=== PATIENT | male | born 1955 | race Caucasian/White ===

== ENCOUNTER 2020-03-03 15:31 | Inpatient (IN) | payer SELFPAY ==
[2020-03-03 16:09] VITALS: BMI 30.4
[2020-03-03 16:11] VITALS: BP 137/81; PULSE 67; RESP 18; TEMP 37.1; O2SAT 95
[2020-03-03 16:57] VITALS: BMI 30.4
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
[2020-03-03 18:55] VITALS: PULSE 67; RESP 18; O2SAT 95
[2020-03-03] MEDS: Ipratropium/Albuterol Sulfate 3 ML AMPUL.NEB INHALATION (18:55)
[2020-03-03] MEDS: oxyCODONE 5 MG Tablet PO (19:04)
[2020-03-03 19:22] VITALS: BP 128/78; PULSE 66; RESP 18; TEMP 36.7; O2SAT 94
[2020-03-03] MEDS: Erythromycin Base 1 OPTH.TUBE 1 APPLIC RIGHT EYE ×2 (21:10→23:14)
[2020-03-03] MEDS: levETIRAcetam 500 MG Tablet PO (21:12)
[2020-03-03] MEDS: Enoxaparin 30 MG/0.3 ML Syringe SC (21:12)
[2020-03-03] MEDS: Acetaminophen 500 MG Tablet 1000 MG PO (21:12)
[2020-03-03] MEDS: Senna/Docusate Sodium 1 Tablet 2 TABLET PO (21:12)
[2020-03-04] MEDS: oxyCODONE 5 MG Tablet PO ×4 (02:05→21:22)
--- NOTE | 2020-03-04 02:53 | NURSING ---
0200 while making pt rounds staff found pt up sitting in the wheelchair with one sock off. when asked what he was doing pt reported that he had just used the urinal and had made a mess on the floor. staff cleaned floor and pt was a max of 2 assists to return to bed, no alarm had gone off when pt got oob. pt did report pain in his left hip and pt was medicated for this. there was no unusual observations noted to the lt hip or on the pt . 1st bladder scan was completed at this time
[2020-03-04] MEDS: Acetaminophen 500 MG Tablet 1000 MG PO ×3 (05:32→21:25)
[2020-03-04] MEDS: Erythromycin Base 1 OPTH.TUBE 1 APPLIC RIGHT EYE ×4 (05:32→23:48)
[2020-03-04 05:44] LABS: Absolute Lymphocyte Count 1.53 X10^3/uL (0.83-4.51); Absolute Neutrophil Count 8.5 X10^3/uL (2.0-7.7); Basophil# 0.02 X10^3/uL; Basophil% 0.2 % (0-1); Eosinophil# 0.13 X10^3/uL; Eosinophils% 1.1 % (0-5); Hemoglobin 12.7 g/dL (13.0-16.5); Lymphocyte # 1.53 X10^3/ul (4.0); Lymphocyte % 13.2 % (19-41); Mean Corp Hgb Conc 33.4 g/dL (32-36); Mean Corpuscular Hgb 31.4 pg (27.0-32.0); Mean Corpuscular Volume 93.8 fL (80-94); Mean Platelet Vol. 9.5 fl (6.2-12.0); Monocyte# 1.28 X10^3/uL; Monocyte% 11.1 % (0-10); NRBC Flagged by Analyzer 0 % (0-5); Neutrophil % 73.5 % (47-70); Platelet Count 281 K/mm3 (150-450); RBC Distribution Width CV 12.8 % (11.6-14.6); RBC Distribution Width SD 43.9 fl (35.1-43.9); Red Blood Count 4.05 M/mm3 (4.6-6.2); White Blood Count 11.6 K/mm3 (4.4-11.0)
[2020-03-04 06:43] LABS: ALB/GLOB Ratio 0.6 RATIO (0.9-2.4); AST(SGOT) 36 U/L (15-37); Alanine Aminotransfer ALT/SGPT 73 U/L (16-61); Alkaline Phosphatase 99 U/L (45-117); Anion Gap 6 (5-15); BUN 20 mg/dL (7-18); BUN/Creat Ratio 28.4 RATIO (10-20); Calcium,Total 9.3 mg/dL (8.5-10.1); Chloride 100 mmol/L (98-107); EST Glomerular Filtration Rate 119 mL/min (>60); Est Glom Filt Rate - Afr Amer 144 mL/min (>60); Estimated Creatinine Clearance 101.79 ml/min; Globulin 5.2 g/dL (2.2-4.2); Glucose 121 mg/dL (74-106); Magnesium 2.3 mg/dL (1.6-2.6); Potassium 3.9 mmol/L (3.5-5.1); Protein, Total 8.2 g/dL (6.4-8.2); Sodium Level 132 mmol/L (136-145)
[2020-03-04 07:32] VITALS: PULSE 67; RESP 18; O2SAT 95
[2020-03-04] MEDS: Ipratropium/Albuterol Sulfate 3 ML AMPUL.NEB INHALATION ×3 (07:32→20:35)
[2020-03-04] MEDS: levETIRAcetam 500 MG Tablet PO ×2 (08:49→21:22)
[2020-03-04] MEDS: Aspirin 81 MG TAB.CHEW PO (08:49)
[2020-03-04] MEDS: Senna/Docusate Sodium 1 Tablet 2 TABLET PO ×2 (08:51→21:21)
[2020-03-04] MEDS: Lidocaine 5% Patch 1 PATCH TOPICAL (08:51)
[2020-03-04 10:00] VITALS: BP 117/81; PULSE 65; RESP 17; TEMP 36.6; O2SAT 93
[2020-03-04] MEDS: Enoxaparin 30 MG/0.3 ML Syringe SC ×2 (10:56→21:24)
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
[2020-03-04] MEDS: Sertraline 50 MG Tablet PO (15:59)
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
[2020-03-04 16:20] VITALS: PULSE 84; RESP 18
[2020-03-04] MEDS: Magnesium Hydroxide 30 ML UDC PO (18:33)
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
[2020-03-04 20:35] VITALS: PULSE 68; RESP 12; O2SAT 93
[2020-03-04 21:20] VITALS: BP 125/74; PULSE 66; RESP 14; TEMP 36.9; O2SAT 95
--- NOTE | 2020-03-05 04:04 | NURSING ---
REVIEWED AND AGREE WITH TERMITE TREATER HELPER'S FUNCTIONAL ASSESSMENT AND HANDOFF CHARTING.
[2020-03-05] MEDS: Erythromycin Base 1 OPTH.TUBE 1 APPLIC RIGHT EYE ×3 (05:37→17:59)
[2020-03-05] MEDS: Acetaminophen 500 MG Tablet 1000 MG PO ×3 (05:37→21:25)
[2020-03-05] MEDS: Bisacodyl 10 MG Suppository RECTAL (05:51)
[2020-03-05 06:20] VITALS: PULSE 66; RESP 16; O2SAT 95
[2020-03-05] MEDS: Ipratropium/Albuterol Sulfate 3 ML AMPUL.NEB INHALATION ×2 (06:22→18:15)
[2020-03-05 07:49] VITALS: BP 121/77; PULSE 59; RESP 16; TEMP 36.7; O2SAT 95
[2020-03-05] MEDS: Aspirin 81 MG TAB.CHEW PO (08:04)
[2020-03-05] MEDS: oxyCODONE 5 MG Tablet PO (08:04)
[2020-03-05] MEDS: Lidocaine 5% Patch 1 PATCH TOPICAL (08:05)
[2020-03-05] MEDS: levETIRAcetam 500 MG Tablet PO ×2 (08:05→21:25)
[2020-03-05] MEDS: Enoxaparin 30 MG/0.3 ML Syringe SC ×2 (08:06→21:25)
[2020-03-05] MEDS: Sertraline 50 MG Tablet PO (08:06)
[2020-03-05] MEDS: Senna/Docusate Sodium 1 Tablet 2 TABLET PO ×2 (08:06→21:25)
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
[2020-03-05] MEDS: Polyethylene Glycol 3350 17 GM PACKET PO (12:45)
--- NOTE | 2020-03-05 13:00 | NURSING ---
pt self transfer from recliner to bed. reeducated pt on the need for call light use for his safety. voiced understanding
--- NOTE | 2020-03-05 13:42 | CASEMGMT ---
Social Work IDT met with patient for Team meeting. Discussed patient's progress in therapy. Pt is ambulating 100 ft CGA with FWW, CGA to min for transfers, SBA for toileting, set up for UE dressing, CGA for LE dressing. ST working on attention, working memory, and complex finances. Pt is on a puree diet. Sutures to be removed 03/13. Physician started pt on antidepressant. Pt is [employer]. Will ReTeam next week. Alysha Albrecht, MANHOLE BUILDER CAR WASH ATTENDANT
[2020-03-05 18:31] VITALS: PULSE 67; RESP 16
[2020-03-05 22:00] VITALS: BP 118/74; PULSE 63; RESP 18; TEMP 36.7; O2SAT 95
[2020-03-06] MEDS: Erythromycin Base 1 OPTH.TUBE 1 APPLIC RIGHT EYE ×4 (00:36→18:39)
[2020-03-06] MEDS: Acetaminophen 500 MG Tablet 1000 MG PO ×3 (06:15→22:24)
[2020-03-06] MEDS: oxyCODONE 5 MG Tablet PO ×2 (06:15→22:25)
[2020-03-06 06:50] VITALS: PULSE 76; RESP 20
[2020-03-06] MEDS: Ipratropium/Albuterol Sulfate 3 ML AMPUL.NEB INHALATION ×2 (06:50→19:04)
[2020-03-06 07:15] VITALS: BP 123/72; PULSE 60; RESP 16; TEMP 36.6; O2SAT 95
[2020-03-06 07:29] VITALS: O2SAT 95
[2020-03-06] MEDS: Aspirin 81 MG TAB.CHEW PO (08:35)
[2020-03-06] MEDS: Enoxaparin 30 MG/0.3 ML Syringe SC ×2 (08:36→22:24)
[2020-03-06] MEDS: Sertraline 50 MG Tablet PO (08:36)
[2020-03-06] MEDS: levETIRAcetam 500 MG Tablet PO ×2 (08:36→22:24)
[2020-03-06] MEDS: Polyethylene Glycol 3350 17 GM PACKET PO (13:17)
[2020-03-06] MEDS: Bisacodyl 10 MG Suppository RECTAL (15:38)
[2020-03-06 19:04] VITALS: PULSE 83; RESP 18; O2SAT 94
[2020-03-06 19:45] VITALS: BP 109/66; PULSE 64; RESP 16; TEMP 36.4; O2SAT 94
[2020-03-06] MEDS: Senna/Docusate Sodium 1 Tablet 2 TABLET PO (22:37)
[2020-03-07] MEDS: Erythromycin Base 1 OPTH.TUBE 1 APPLIC RIGHT EYE ×5 (00:54→23:56)
[2020-03-07] MEDS: Acetaminophen 500 MG Tablet 1000 MG PO ×3 (06:42→20:55)
[2020-03-07 07:13] VITALS: BP 117/71; PULSE 71; RESP 18; TEMP 36.9; O2SAT 95
[2020-03-07 07:30] VITALS: PULSE 67; RESP 16; O2SAT 95
[2020-03-07] MEDS: Ipratropium/Albuterol Sulfate 3 ML AMPUL.NEB INHALATION ×3 (07:30→20:00)
[2020-03-07] MEDS: Aspirin 81 MG TAB.CHEW PO (08:24)
[2020-03-07] MEDS: Enoxaparin 30 MG/0.3 ML Syringe SC ×2 (08:24→20:55)
[2020-03-07] MEDS: Senna/Docusate Sodium 1 Tablet 2 TABLET PO (08:25)
[2020-03-07] MEDS: Sertraline 50 MG Tablet PO (08:25)
[2020-03-07] MEDS: Polyethylene Glycol 3350 17 GM PACKET PO (08:25)
[2020-03-07] MEDS: oxyCODONE 5 MG Tablet PO ×2 (08:28→13:57)
[2020-03-07 11:25] VITALS: PULSE 67; RESP 16; O2SAT 94
[2020-03-07 19:49] VITALS: BP 115/75; PULSE 71; RESP 17; TEMP 36.4; O2SAT 95
[2020-03-07 20:00] VITALS: PULSE 71; RESP 16
[2020-03-08] MEDS: Erythromycin Base 1 OPTH.TUBE 1 APPLIC RIGHT EYE ×3 (05:04→16:59)
[2020-03-08] MEDS: Acetaminophen 500 MG Tablet 1000 MG PO ×3 (05:05→21:07)
[2020-03-08] MEDS: Aspirin 81 MG TAB.CHEW PO (08:39)
[2020-03-08] MEDS: Sertraline 50 MG Tablet PO (08:39)
[2020-03-08] MEDS: Enoxaparin 30 MG/0.3 ML Syringe SC ×2 (08:39→21:07)
[2020-03-08] MEDS: oxyCODONE 5 MG Tablet PO (08:39)
[2020-03-08 09:09] VITALS: BP 108/72; PULSE 63; RESP 18; TEMP 36.5; O2SAT 99
[2020-03-08 10:28] VITALS: PULSE 73; RESP 16
[2020-03-08] MEDS: Ipratropium/Albuterol Sulfate 3 ML AMPUL.NEB INHALATION (10:28)
--- NOTE | 2020-03-08 14:04 | NURSING ---
Pt ambulated x2 laps throughout hallways with x1 assist and FWW, tolerated well.
[2020-03-08 21:40] VITALS: BP 116/73; PULSE 62; RESP 16; TEMP 36.7; O2SAT 98
[2020-03-09] MEDS: Erythromycin Base 1 OPTH.TUBE 1 APPLIC RIGHT EYE ×4 (01:18→16:38)
[2020-03-09] MEDS: Acetaminophen 500 MG Tablet 1000 MG PO ×3 (05:48→21:46)
[2020-03-09] MEDS: oxyCODONE 5 MG Tablet PO (05:53)
[2020-03-09 06:31] LABS: Anion Gap 6 (5-15); BUN 23 mg/dL (7-18); BUN/Creat Ratio 28.1 RATIO (10-20); Calcium,Total 8.9 mg/dL (8.5-10.1); Chloride 101 mmol/L (98-107); Creatinine, Serum 0.82 mg/dL (0.70-1.30); EST Glomerular Filtration Rate 100 mL/min (>60); Est Glom Filt Rate - Afr Amer 121 mL/min (>60); Estimated Creatinine Clearance 85.73 ml/min; Glucose 118 mg/dL (74-106); Potassium 4.2 mmol/L (3.5-5.1); Sodium Level 134 mmol/L (136-145)
[2020-03-09] MEDS: Ipratropium/Albuterol Sulfate 3 ML AMPUL.NEB INHALATION (06:35)
[2020-03-09 06:37] VITALS: PULSE 64; RESP 16
[2020-03-09 07:30] VITALS: BP 114/72; PULSE 64; RESP 16; TEMP 36.6; O2SAT 95
[2020-03-09] MEDS: Aspirin 81 MG TAB.CHEW PO (08:13)
[2020-03-09] MEDS: Sertraline 50 MG Tablet PO (08:13)
[2020-03-09] MEDS: Enoxaparin 30 MG/0.3 ML Syringe SC ×2 (08:13→21:46)
[2020-03-09 21:40] VITALS: BP 104/72; PULSE 61; RESP 16; TEMP 36.8; O2SAT 97
[2020-03-10] MEDS: Erythromycin Base 1 OPTH.TUBE 1 APPLIC RIGHT EYE ×4 (00:46→17:00)
[2020-03-10] MEDS: Acetaminophen 500 MG Tablet 1000 MG PO ×3 (06:14→21:01)
[2020-03-10 07:55] VITALS: BP 116/63; PULSE 65; RESP 16; TEMP 36.7; O2SAT 96
[2020-03-10] MEDS: Enoxaparin 30 MG/0.3 ML Syringe SC ×2 (07:57→21:00)
[2020-03-10] MEDS: Aspirin 81 MG TAB.CHEW PO (07:57)
[2020-03-10] MEDS: Sertraline 50 MG Tablet PO (07:57)
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
[2020-03-10 12:54] LABS: Hemoglobin A1c 5.4 % (3.8-5.6)
[2020-03-10 13:55] LABS: Urine Sodium 17 mmol/L (Not Establ.)
[2020-03-10 21:11] VITALS: BP 107/73; PULSE 61; RESP 16; TEMP 36.8; O2SAT 97
[2020-03-11] MEDS: Erythromycin Base 1 OPTH.TUBE 1 APPLIC RIGHT EYE ×4 (01:31→18:52)
[2020-03-11] MEDS: Acetaminophen 500 MG Tablet 1000 MG PO ×3 (06:13→22:42)
[2020-03-11] MEDS: oxyCODONE 5 MG Tablet PO (06:17)
[2020-03-11 07:30] VITALS: BP 120/71; PULSE 66; RESP 18; TEMP 36.8; O2SAT 94
[2020-03-11] MEDS: Enoxaparin 30 MG/0.3 ML Syringe SC ×2 (08:58→20:31)
[2020-03-11] MEDS: Aspirin 81 MG TAB.CHEW PO (08:58)
[2020-03-11] MEDS: Sertraline 50 MG Tablet PO (08:59)
--- NOTE | 2020-03-11 11:05 | CASEMGMT ---
Social Work SW met with pt and discussed advanced care planning with pt. Pt stating he and have have discussed HCPOA but are uncertain who to name. Pt is planning on bringing in pt Living Will and they will review this document to determine who they named as contact and make decisions on HCPOA. Rack Card given to pt to contact SW should he wish to complete documents. LEON Kenny
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
[2020-03-11] MEDS: 0.9% Normal Saline 1,000 ML 125 ML IV ×2 (16:45→20:29)
[2020-03-11] MEDS: 0.9% Saline Lock 10 ML Syringe IV (18:52)
[2020-03-11 19:44] VITALS: BP 106/60; PULSE 60; RESP 16; TEMP 36.6; O2SAT 98
[2020-03-12] MEDS: Erythromycin Base 1 OPTH.TUBE 1 APPLIC RIGHT EYE ×5 (00:08→21:29)
[2020-03-12] MEDS: Acetaminophen 500 MG Tablet 1000 MG PO ×3 (06:46→21:28)
[2020-03-12] MEDS: Aspirin 81 MG TAB.CHEW PO (07:42)
[2020-03-12] MEDS: Enoxaparin 30 MG/0.3 ML Syringe SC (07:43)
[2020-03-12] MEDS: Senna/Docusate Sodium 1 Tablet 2 TABLET PO (07:43)
[2020-03-12] MEDS: Sertraline 50 MG Tablet PO (07:43)
[2020-03-12] MEDS: Polyethylene Glycol 3350 17 GM PACKET PO (07:44)
[2020-03-12 08:58] VITALS: BP 122/80; PULSE 62; RESP 12; TEMP 36.7; O2SAT 97
--- NOTE | 2020-03-12 14:53 | CASEMGMT ---
Addendum entered by Alysha Albrecht 03/12/20 14:58: Referred to [facility] Original Note: Social Work IDT met with patient and for Team meeting. Discussed patient's progress in therapy. Pt is completing a flight of steps SBA, SBA for transfers, ambulating outside, multiple surfaces with FWW. Pt is set up for UE ADLs and grooming, CGA for LE ADLS. Pt improved strength and endurance. Pt on regular, thin diet, and working on complex number processing tasks, still having some difficulty with attention and working memory. Pt gets sutures removed 03/13. Discussed DC date. Pt agreeable to DC 03/14. [facility] Liaison assisting pt in DME needs. SW to order [facility] PT/OT/ST. Plan: DC home with 03/14 with [facility] PT/OT/ST. Alysha Albrecht, SWAPNIL SHRESTHAW
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
[2020-03-12 19:25] VITALS: BP 106/66; PULSE 63; RESP 18; TEMP 36.6; O2SAT 97
[2020-03-13] MEDS: Acetaminophen 500 MG Tablet 1000 MG PO ×3 (05:26→21:42)
[2020-03-13] MEDS: Erythromycin Base 1 OPTH.TUBE 1 APPLIC RIGHT EYE ×3 (05:27→17:08)
[2020-03-13 06:06] LABS: Hematocrit 34.5 % (40-54); Hemoglobin 11.2 g/dL (13.0-16.5)
[2020-03-13 06:11] LABS: Anion Gap 3 (5-15); BUN 17 mg/dL (7-18); BUN/Creat Ratio 20.6 RATIO (10-20); Calcium,Total 8.8 mg/dL (8.5-10.1); Chloride 104 mmol/L (98-107); Creatinine, Serum 0.83 mg/dL (0.70-1.30); EST Glomerular Filtration Rate 99 mL/min (>60); Est Glom Filt Rate - Afr Amer 120 mL/min (>60); Glucose 113 mg/dL (74-106); Potassium 4.6 mmol/L (3.5-5.1); Sodium Level 135 mmol/L (136-145)
[2020-03-13] MEDS: Aspirin 81 MG TAB.CHEW PO (07:51)
[2020-03-13] MEDS: Enoxaparin 40 MG/0.4 ML Syringe SC (07:52)
[2020-03-13] MEDS: Sertraline 50 MG Tablet PO (07:52)
[2020-03-13] MEDS: Polyethylene Glycol 3350 17 GM PACKET PO (07:52)
[2020-03-13] MEDS: Senna/Docusate Sodium 1 Tablet 2 TABLET PO ×2 (07:52→21:41)
[2020-03-13 08:35] VITALS: BP 121/71; PULSE 64; RESP 16; TEMP 36.8; O2SAT 96
--- NOTE | 2020-03-13 10:28 | NURSING ---
Sutures removed from forehead and Lt elbow without pain or discomfort noted/expressed. Incision line to forehead well approximated and no active bleeding noted. Surrounding skin unremarkable. Area to Lt elbow was scabbed over and sutures slightly difficult to remove. Small scab was pulled up during the removal. No active bleeding noted. Surrounding skin slightly pink in color. Denies tenderness. Both areas cleansed with soap and water and left open to air.
--- NOTE | 2020-03-13 15:09 | CHAPLAIN ---
Type of Pastoral Visit ___ Initial Visit _x__ Follow-up Visit ___ On-call Visit ___ General Patient Visit ___ Spiritual Assessment ___ Family Conference ___ Bereavement ___ Rapid Response ___ Code Blue ___ Other (describe below) Pastoral Care Referral From _x__ Patient ___ Family ___ Nurse ___ Physician ___ Diet Tech ___ Big Data Admin ___ Other (describe below) Sacrament/Intervention _x__ Active listening ___ Anointing ___ Denominational ___ Bereavement ___ Communion ___ Nayeli exploration ___ ___ Life review _x__ Prayer ___ Reconciliation ___ Sacrament of Sick ___ Supportive presence ___ Wedding ___ Other (describe below) Pastoral Comments
[2020-03-13 19:22] VITALS: BP 113/71; PULSE 68; RESP 18; TEMP 36.4; O2SAT 97
[2020-03-14] MEDS: Erythromycin Base 1 OPTH.TUBE 1 APPLIC RIGHT EYE ×2 (00:14→06:21)
[2020-03-14] MEDS: Acetaminophen 500 MG Tablet 1000 MG PO ×2 (06:20→13:34)
[2020-03-14 07:55] VITALS: BP 111/68; PULSE 65; RESP 20; TEMP 36.7; O2SAT 94
[2020-03-14] MEDS: Enoxaparin 40 MG/0.4 ML Syringe SC (08:13)
[2020-03-14] MEDS: Sertraline 50 MG Tablet PO (08:14)
[2020-03-14] MEDS: Aspirin 81 MG TAB.CHEW PO (08:14)
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
--- NOTE | 2020-03-14 14:09 | NURSING ---
discharged home with . discharge instructions, medications and appointments reviewed with pt. denies questions or concerns.
[2020-03-14 14:11] VITALS: BP 111/68; PULSE 65; RESP 18; TEMP 36.7; O2SAT 94
== END 2020-03-14 13:45 | disposition home health service (06) | DRG 560 ==
PROVIDERS: Admitting Provider Internal Medicine; Visit Provider Internal Medicine
DX: S32.512D Fracture of superior rim of left pubis, subsequent encounter for fracture with routine healing (principal); E87.1 Hypo-osmolality and hyponatremia; D62 Acute posthemorrhagic anemia; V17 Pedal cycle rider injured in collision with fixed or stationary object; S22.32XD Fracture of one rib, left side, subsequent encounter for fracture with routine healing; S06.5X9D Traumatic subdural hemorrhage with loss of consciousness of unspecified duration, subsequent encounter; S02.2XXD Fracture of nasal bones, subsequent encounter for fracture with routine healing; S02.19XD Other fracture of base of skull, subsequent encounter for fracture with routine healing; F32.9 Major depressive disorder, single episode, unspecified; K59.00 Constipation, unspecified; S02.85XD Fracture of orbit, unspecified, subsequent encounter for fracture with routine healing; R73.9 Hyperglycemia, unspecified
CPT/HCPCS: 36415; 80048; 80053; 82570; 83036; 83735; 84100; 84300; 85014; 85018; 85025; 92507; 92523; 92526; 92610; 94640; 97110; 97116; 97129; 97130; 97162; 97166; 97530; 97535; 97802; 99251; J7030; J7040; A4216; G0463

== ENCOUNTER → 2020-06-25 06:56 | Outpatient (CLI) | payer SELFPAY, OTHER ==
[2020-05-21 09:15] VITALS: BMI 30.4
--- NOTE | 2020-06-25 08:08 | TELEMED_ITS ---
[facility] Telemed has confirmed receipt of a request for visit. This document confirms receipt of the order initiating the consult. To find the results of the consultation, please view the patient's reports for the scanned Telemed Consult.
--- NOTE | 2020-06-25 08:23 | CDU_ITS ---
Reason For Study: Left carotid dissection Rt. Velocities/BP Lt. Velocities/BP Prox CCA 85.1/ 12.1 cm/sec. Prox CCA 91.1/ 14.2 cm/sec. Mid CCA 98.2/ 12.1 cm/sec. Mid CCA 95.1/ 19.3 cm/sec. Dist CCA 82.6/ 17.3 cm/sec. Dist CCA 75.4/ 18.2 cm/sec. Prox ICA 93.0/ 7.1 cm/sec. Prox ICA 65.5/ 16.0 cm/sec. Mid ICA 76.5/ 8.9 cm/sec. Mid ICA 55.6/ 20.4 cm/sec. Dist ICA 56.4/ 12.2 cm/sec. Dist ICA 50.1/ 21.5 cm/sec. Rt. ICA/CCA = 1.09. Lt. ICA/CCA = 0.72. Prox ECA 124.0/ 5.3 cm/sec. Prox ECA 78.7/ 9.4 cm/sec. Rt. Vert. 26.4/ 5.6 cm/sec. Lt. Vert. 45.7/ 14.9 cm/sec. Right Extracranial There is homogeneous, smooth atherosclerotic plaque noted in the right common carotid artery. There is homogeneous, smooth atherosclerotic plaque noted in the right internal carotid artery. There is intimal thickening but no significant atherosclerotic plaque noted in the right external carotid artery. Antegrade flow is noted in the right vertebral artery. Left Extracranial There is homogeneous, smooth atherosclerotic plaque noted in the left common carotid artery. There is intimal thickening but no significant atherosclerotic plaque noted in the left internal carotid artery. There is intimal thickening but no significant atherosclerotic plaque noted in the left external carotid artery. Antegrade flow is noted in the left vertebral artery. PT has known Left CCA non-occluding dissection, unable to visualize and no color differentiation noted. Procedure Carotid Duplex [id number]. This is a Carotid Duplex examination using B-mode, color flow and specral Doppler. Exam performed in department. Interpretation Summary Minimal smooth plaque at the proximal right internal carotid artery with less than 50% stenosis. Less than 50% stenosis right external carotid Findings suggest post operative changes of the left carotid bulb and proximal internal carotid artery although this is not provided in the history. There is no hemodynamically significant plaque and less than 50% stenosis of the left internal carotid Less than 50% stenosis left external carotid No evidence for carotid dissection Patent and antegrade vertebrals bilaterally Ordering Physician: Chacho Browne Referring Physician: Sami Milner Performed By: Jacinta Flannery RVT and Student
== END ==
PROVIDERS: PCP Family Medicine; Referring Provider Psychiatry & Neurology Neurology; Visit Provider Psychiatry & Neurology Neurology
DX: I65.23 Occlusion and stenosis of bilateral carotid arteries (principal); I69.322 Dysarthria following cerebral infarction; F09 Unspecified mental disorder due to known physiological condition
CPT/HCPCS: 93880; 95819

== ENCOUNTER → 2020-06-27 10:38 | Outpatient (CLI) | payer OTHER, SELFPAY ==
[2020-05-21 09:15] VITALS: BMI 30.4
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
[2020-06-27 11:35] LABS: Hematocrit 44.9 % (40-54); Hemoglobin 14.5 g/dL (13.0-16.5); Mean Corp Hgb Conc 32.3 g/dL (32-36); Mean Corpuscular Hgb 30.2 pg (27.0-32.0); Mean Corpuscular Volume 93.5 fL (80-94); Mean Platelet Vol. 10.4 fl (6.2-12.0); Platelet Count 231 K/mm3 (150-450); RBC Distribution Width CV 13.2 % (11.6-14.6); RBC Distribution Width SD 45.1 fl (35.1-43.9); White Blood Count 6.3 K/mm3 (4.4-11.0)
[2020-06-27 12:16] LABS: ALB/GLOB Ratio 0.8 RATIO (0.9-2.4); AST(SGOT) 22 U/L (15-37); Alanine Aminotransfer ALT/SGPT 48 U/L (16-61); Albumin, Serum 3.8 g/dL (3.2-5.0); Alkaline Phosphatase 69 U/L (45-117); Anion Gap 5 (5-15); BUN 15 mg/dL (7-18); BUN/Creat Ratio 18.5 RATIO (10-20); Calcium,Total 8.9 mg/dL (8.5-10.1); Chloride 103 mmol/L (98-107); Creatinine, Serum 0.81 mg/dL (0.70-1.30); EST Glomerular Filtration Rate 101 mL/min (>60); Est Glom Filt Rate - Afr Amer 122 mL/min (>60); Ferritin 217 ng/mL (26-388); Globulin 4.6 g/dL (2.2-4.2); Glucose 107 mg/dL (74-106); Iron 83 ug/dL (65-175); Protein, Total 8.4 g/dL (6.4-8.2); Sodium Level 138 mmol/L (136-145)
[2020-06-29 09:15] LABS: Vitamin B12 444 pg/mL (211-911)
== END ==
PROVIDERS: PCP Family Medicine; Referring Provider Psychiatry & Neurology Neurology; Visit Provider Psychiatry & Neurology Neurology
DX: S06.9X9A Unspecified intracranial injury with loss of consciousness of unspecified duration, initial encounter (principal); X58.XXXA Exposure to other specified factors, initial encounter; Y93.9 Activity, unspecified; Y92.9 Unspecified place or not applicable; Y99.9 Unspecified external cause status; D64.9 Anemia, unspecified; F09 Unspecified mental disorder due to known physiological condition; F32.9 Major depressive disorder, single episode, unspecified; F41.9 Anxiety disorder, unspecified
CPT/HCPCS: 36415; 70450; 80053; 82607; 82728; 82746; 83540; 84443; 85027